=== PATIENT | female | born 1975 | race African-American/Black ===

== ENCOUNTER 2021-04-28 13:53 | Emergency (ER) | payer OTHER ==
[~2021-04-28] VITALS: Ht 172.7 cm; Wt 91.0 kg
[2021-04-28] MEDS ORDERED: ACETAMINOPHEN 325MG TABLET PO ONE (15:45)
[2021-04-28] MEDS ORDERED: ACETAMINOPHEN 500MG TABLET PO ONE (15:45)
[2021-04-28] MEDS ORDERED: IBUP-2029 MT (17:09)
[2021-04-28 18:37] LABS: EOSINOPHILS % 1.2 % (0.0-5.0); HEMATOCRIT. 28.8 % (36.0-48.0); HEMOGLOBIN. 9.3 g/dL (12.0-16.0); LYMPHOCYTES % 37.3 % (20.0-50.0); MEAN CORPUSCULAR HEMOGLOBIN 21.3 pg (28.0-32.0); MEAN CORPUSCULAR VOLUME 66.2 fL (81.0-99.0); MEAN PLATELET VOLUME 7.7 fl (7.4-10.4); NEUTROPHILS % 51.5 % (40.0-76.0); PLATELET 306 x1000/uL (130-400); RED BLOOD CELL COUNT 4.35 mill/uL (4.2-5.4); RED CELL DISTRIBUTION WIDTH 20.5 % (11.6-14.6)
[2021-04-28 18:44] LABS: CHLORIDE 110 mEq/L (98-107)
[2021-04-28 18:48] LABS: ETHANOL BLOOD 101 mg/dL
[2021-04-28 18:50] LABS: CLARITY URINE CLEAR (CLEAR); COLOR URINE YELLOW (YELLOW); KETONES URINE NEGATIVE (NEGATIVE); LEUKOCYTE ESTERASE URINE NEGATIVE (NEGATIVE); NITRITE URINE NEGATIVE (NEGATIVE); OCCULT BLOOD URINE NEGATIVE (NEGATIVE); PH URINE 7.5 (4.5-8.0); PROTEIN URINE NEGATIVE (NEGATIVE); SPECIFIC GRAVITY URINE 1.006 (1.005-1.030); UROBILINOGEN URINE 0.2 E.U./dL (0.2-1.0)
[2021-04-28 18:57] LABS: HCG SCREEN NEGATIVE
[2021-04-28 19:16] LABS: *AMPHETAMINES SCREEN URINE NEGATIVE (NEGATIVE); *BARBITURATES SCREEN URINE NEGATIVE (NEGATIVE); *BENZODIAZEPINES SCREEN URINE NEGATIVE (NEGATIVE)
[2021-04-28 19:17] LABS: METHADONE URINE SCREEN NEGATIVE (NEGATIVE); OPIATES URINE SCREEN NEGATIVE (NEGATIVE); PHENCYCLIDINE URINE SCREEN NEGATIVE (NEGATIVE)
[2021-04-28 19:21] LABS: *COCAINE SCREEN URINE PRESUMTIVE POSITIVE (NEGATIVE); CANNABINOID URINE SCREEN PRESUMTIVE POSITIVE (NEGATIVE)
[2021-04-28 20:42] LABS: PLATELET ESTIMATE NORMAL
[2021-04-29] MEDS ORDERED: KETOROLAC 15MG/ML VIAL IM ONE
[2021-04-29] MEDS ORDERED: OLANZAPINE 5MG TABLET PO SCH
[2021-04-29 11:20] VITALS: BP 120/65
== END 2021-04-29 11:27 | disposition home or self-care (01) ==
LOC: ER 13:53
DX: T14.90XA Injury, unspecified, initial encounter (principal); R45.851 Suicidal ideations; R51.9 Headache, unspecified; Z98.890 Other specified postprocedural states; Z20.822 Contact with and (suspected) exposure to COVID-19; X58.XXXA Exposure to other specified factors, initial encounter; Y93.9 Activity, unspecified; Y92.89 Other specified places as the place of occurrence of the external cause; Y99.8 Other external cause status
CPT/HCPCS: 36415; 70450; 70486; 73562; 80053; 80305; 80320; 81003; 84703; 85025; 96372; 99285; C9803; J1885; U0003; U0005; G0480